=== PATIENT | female | born 1970 | race Caucasian/White ===

== ENCOUNTER 2017-02-21 15:20 | Emergency (ER) | payer BC ==
[2017-02-21 15:51] VITALS: BP 103/61
--- NOTE | 2017-02-21 16:51 | UC ---
Throat Pain/Nasal Pardeep HPI - HPI Summary HPI Summary: patient was treated for strep 3 weeks ago, still has a sore throat and no other symptoms, does have some ear pressure. no fever - History of Current Complaint Chief Complaint: UCRespiratory Stated Complaint: SORE THROAT/EAR PAIN Time Seen by Provider: 02/21/17 16:37 Hx Obtained From: Patient Hx Last Menstrual Period: 02/20/17 ?: No Onset/Duration: Sudden Onset, Lasting Days Severity: Mild Cough: None Associated Signs & Symptoms: Positive: Dysphagia, Hoarseness - Epiglottits Risk Factors Epiglottis Risk Factors: Negative - Allergies/Home Medications Allergies/Adverse Reactions: Allergies Allergy/AdvReac Type Severity Reaction Status Date / Time No Known Allergies Allergy Verified 02/21/17 15:51 Home Medications: Home Medications Loratadine [Claritin 10 MG CAP] 1 tab PO DAILY 02/21/17 [History Confirmed 02/21] PMH/Surg Hx/FS Hx/Imm Hx Previously Healthy: Yes - Surgical History Surgical History: None - Family History Known Family History: Positive: Hypertension - Social History Alcohol Use: None Substance Use Type: None Smoking Status (MU): Never Smoked Tobacco Review of Systems Constitutional: Negative Skin: Negative Eyes: Negative ENT: Sore Throat Respiratory: Negative Cardiovascular: Negative Gastrointestinal: Negative Genitourinary: Negative Motor: Negative Neurovascular: Negative Musculoskeletal: Negative Neurological: Negative Psychological: Negative All Other Systems Reviewed And Are Negative: Yes Physical Exam Triage Information Reviewed: Yes Appearance: Well-Appearing, Well-Nourished, Pain Distress Vital Signs: Initial Vital Signs Temp 99.2 F 02/21/17 15:46 Pulse 71 02/21/17 15:46 Resp 16 02/21/17 15:46 BP 103/61 02/21/17 15:46 Pulse Ox 99 02/21/17 15:46 Vital Signs Reviewed: Yes Eye Exam: Normal Eyes: Positive: Conjunctiva Clear ENT: Positive: Pharynx normal, TMs normal, Muffled/hoarse voice Dental Exam: Normal Neck exam: Normal Neck: Positive: Supple, Nontender, No Lymphadenopathy Respiratory Exam: Normal Respiratory: Positive: Chest non-tender, Lungs clear, Normal breath sounds Cardiovascular Exam: Normal Cardiovascular: Positive: RRR, No Murmur, Pulses Normal Abdominal Exam: Normal Abdomen Description: Positive: Nontender, No Organomegaly, Soft Bowel Sounds: Positive: Present Musculoskeletal Exam: Normal Musculoskeletal: Positive: Strength Intact, ROM Intact, No Edema Neurological Exam: Normal Neurological: Positive: Alert, Muscle Tone Normal Psychological Exam: Normal Skin Exam: Normal Throat Pain/Nasal Course/Dx - Course Course Of Treatment: hx obtained, exam performed ,meds reviewed, rapid strep obtained and is negative - Differential Dx/Diagnosis Differential Diagnosis/HQI/PQRI: Influenza, Laryngitis, Otitis Media, Pharyngitis, Sinusitis Provider Diagnoses: pharyngitis Discharge - Discharge Plan Condition: Stable Disposition: HOME Patient Education Materials: Pharyngitis (ED) Additional Instructions: 1. increase your fluid intake 2. Take the prednisone as prescribed.
== END 2017-02-21 17:33 | disposition home or self-care (01) ==
LOC: UCCORT 15:20
DX: J02.9 Acute pharyngitis, unspecified (principal)
CPT/HCPCS: 87651; 99212; G0463

== ENCOUNTER 2019-08-15 14:47 | Emergency (ER) | payer BC, OTHER ==
--- NOTE | 2019-08-15 17:17 | UC ---
Back Pain HPI - HPI Summary HPI Summary: 49-year-old female comes in with a chief complaint of low back pain. Started 5 days ago. No known specific trauma. Pain is in the lumbar region and it's spreads bilaterally. It does radiate more to the left side of the abdomen. No nausea no vomiting. No change in bowel or bladder. Pain is worse with twisting turning bending of the back. It does not radiate into the legs. No weakness numbness or difficulty controlling urine or bowels. Patient had similar pain a few months ago after doing gardening for several days and is improved with medication and stretches and time. Some stretching does help this pain. Patient has no history of kidney stones. - History of Current Complaint Chief Complaint: UCBackPain Stated Complaint: BACK PAIN Time Seen by Provider: 08/15/19 16:39 Hx Last Menstrual Period: 08/07/19 Pain Intensity: 2 - Allergies/Home Medications Allergies/Adverse Reactions: Allergies Allergy/AdvReac Type Severity Reaction Status Date / Time No Known Allergies Allergy Verified 08/15/19 15:29 Home Medications: Home Medications Naproxen Sodium [Aleve] 440 mg PO Q12H PRN 08/15/19 [History Confirmed 08/15/19] PMH/Surg Hx/FS Hx/Imm Hx Previously Healthy: Yes - Surgical History Surgical History: None - Family History Known Family History: Positive: Hypertension - Social History Alcohol Use: None Substance Use Type: None Smoking Status (MU): Never Smoked Tobacco Review of Systems All Other Systems Reviewed And Are Negative: Yes Constitutional: Positive: Negative Skin: Positive: Negative Eyes: Positive: Negative ENT: Positive: Negative Respiratory: Positive: Negative Cardiovascular: Positive: Negative Gastrointestinal: Positive: Other - see hpi Genitourinary: Positive: Negative Motor: Positive: Other - see hpi Neurovascular: Positive: Negative Musculoskeletal: Positive: Other: - see hpi Neurological: Positive: Negative Psychological: Positive: Negative Is Patient Immunocompromised?: No Physical Exam Triage Information Reviewed: Yes Appearance: Well-Appearing, Well-Nourished, Pain Distress - mild with rom and exam of lumbar back Vital Signs: Initial Vital Signs Temp 98.1 F 08/15/19 15:26 Pulse 66 08/15/19 15:26 Resp 16 08/15/19 15:26 BP 114/54 08/15/19 15:26 Pulse Ox 100 08/15/19 15:26 Vital Signs Reviewed: Yes Eye Exam: Normal Eyes: Positive: Conjunctiva Clear Neck: Positive: Supple Respiratory: Positive: Lungs clear, Normal breath sounds, No respiratory distress Cardiovascular: Positive: RRR Musculoskeletal: Positive: Other: - . The pain is in the lumbar spine essentially from L1 to L5 and down into the bilateral sacroiliac areas. The paraspinous Muscles feel tight. Legs have full range of motion full-strength no sensation deficit normal strength. Neurological: Positive: Alert Psychological: Positive: Age Appropriate Behavior Skin Exam: Normal Back Pain Course/Dx - Course Course Of Treatment: Media Manager: Yosi Asencio F ([id number]) Client Relationship Consultant: MICHELL ( NUANCE) Report Date: 08/15/2019 17:54:00 Report Status: Final ====== Start of Report Content Patient Name: SOWMYA GAMEZ Medical Record#: [id number] Ordering Physician: Nigel Gutierrez MD Acct.#: [id number] : 08/1970 Age: 49 Sex: F Location: [facility] Exam Date: 08/15/19 1655 ADM Status: [facility] Order Information: CT ABD/PEL W/O Accession Number: [id number] CPT: 94012 INDICATION: Hematuria, flank pain. COMPARISON: There are no prior studies available for comparison. TECHNIQUE: A CT scan of the abdomen and pelvis was performed without intravenous and without oral contrast. Contiguous axial sections were obtained from the lung bases through the symphysis pubis. Images were reconstructed in the coronal and sagittal planes. FINDINGS: LUNG BASES: The lung bases are clear. No pleural effusion is present. LIVER: The liver is normal in size. No significant focal abnormality is seen on this noncontrast study. GALLBLADDER: No calcified gallstones are seen. BILE DUCTS: No intra or extrahepatic ductal distention is seen. SPLEEN: The spleen is normal in size without significant focal abnormality. PANCREAS: The pancreas is normal in size. No ductal distention or calcifications are seen. ADRENAL GLANDS: The adrenal glands are normal in size. KIDNEYS: The kidneys are normal in size. There are several calculi in the lower pole of the right kidney measuring up to 7 mm in size. No hydronephrosis is seen. There is a large cyst arising from the upper pole of the left kidney measuring 5.7 x 5.8 x 4.4 cm in size. This is incompletely evaluated on this noncontrast study. Recommend a follow-up renal ultrasound for further evaluation. AORTA: The aorta is normal in caliber with mild calcific plaque present. LYMPH NODES: No significantly enlarged lymph nodes are seen. BOWEL: The stomach, small and large bowel appear nondistended. The appendix is not visualized on this noncontrast study. There are scattered diverticula within the colon. There is no evidence for diverticulitis or colitis. PELVIC ORGANS: No bladder wall thickening or calculi are seen. The uterus is anteverted and mildly enlarged. No abnormal calcifications are seen. PERITONEUM: No free intraperitoneal air or fluid is seen. BONES: No significant focal osseous abnormality is seen. IMPRESSION: 1. NONOBSTRUCTING RIGHT RENAL CALCULI. 2. LARGE CYSTS ARISING FROM THE UPPER POLE OF THE LEFT KIDNEY INCOMPLETELY EVALUATED ON THIS STUDY. RECOMMEND AN OUTPATIENT RENAL ULTRASOUND FOR FURTHER EVALUATION. 3. MILDLY ENLARGED UTERUS. _ <Electronically signed by Yosi Asencio MD in OV> 08/15/191747 Dictated By: Yosi Asencio MD Dictated Date/Time: 08/15/19 173 Transcribed Date/Time: 08/15/191732 Copy to: CC:Elizabeth Torres MD; Nigel Gutierrez MD Imaging - [facility] Imaging - [facility] [address] [address] ph ([phone]) ph ([phone]) ph ([phone]) End of Report Content I discussed the CT scan with the patient. Patient will take ibuprofen used lidocaine patches and do stretching for her low back pain. Pain does appear to be a musculoskeletal issue at this time. Also prescription for Flexeril be used as needed. Patient does have some blood in her urine and also on CT she has kidney stones in the right kidney and a kidney cyst on the left side. Patient will follow-up with urology for those conditions. Also mildly enlarged uterus which patient follow-up with her primary care physician R her paradi tender. Patient to get reevaluated if worse or any questions or concerns. - Differential Dx/Diagnosis Provider Diagnosis: Low back pain, Hematuria, Kidney calculi, Solitary cyst of kidney Discharge ED - Sign-Out/Discharge Documenting (check all that apply): Patient Departure All imaging exams completed and their final reports reviewed: Yes - Discharge Plan Condition: Stable Disposition: HOME Prescriptions: Cyclobenzaprine TAB* [Flexeril 10 MG TAB*] 10 mg PO TID PRN #15 tab MDD 3 PRN Reason: Pain - Moderate Patient Education Materials: Hematuria (ED), Acute Low Back Pain (ED), Kidney Stones (ED), Kidney Cyst (ED) Referrals: [facility] [Provider Group] Elizabeth Torres MD [Primary Care Provider] - Gibran Irene MD [Medical Doctor] - Additional Instructions: FOLLOW UP WITH YOUR PRIMARY CARE DOCTOR. FOLLOW UP WITH SPORTS MEDICINE FOR YOUR BACK PAIN. FOLLOW UP WITH UROLOGY FOR THE HEMATURIA, KIDNEY STONES AND KIDNEY CYST. GET REEVALUATED SOONER IF NOT IMPROVING OR WORSE; PAIN, WEAKNESS, NUMBNESS, DIFFICULTY CONTROLLING BOWEL OR BLADDER, YOU FEEL ILL OR ANY QUESTIONS OR CONCERNS. - Billing Disposition and Condition Condition: STABLE Disposition: Home
[2019-08-15 18:14] VITALS: BP 109/70
== END 2019-08-15 18:19 | disposition home or self-care (01) ==
LOC: UCCORT 14:47
DX: N20.0 Calculus of kidney (principal); N28.1 Cyst of kidney, acquired; R31.9 Hematuria, unspecified; N85.2 Hypertrophy of uterus
CPT/HCPCS: 74176; 81003; 99211; G0463